=== PATIENT | male | born 1960 | race Caucasian/White ===

== ENCOUNTER 2016-08-15 06:03 | Day surgery (SDC) | payer OTHER, MEDICAID ==
[2016-08-15] VITALS (35 sets, daily range): BP systolic 107–160; BP diastolic 55–92; PULSE 54–90; RESP 11–21; Ht 165.1 cm; Wt 111.6 kg
[~2016-08-15] VITALS: Ht 165.1 cm; Wt 111.6 kg
[2016-08-15] MEDS ORDERED: GABA100C14 PO (07:09)
[2016-08-15] MEDS ORDERED: CANA1TAB3 PO (07:09)
[2016-08-15] MEDS ORDERED: TRAM50TA2 PO (07:09)
[2016-08-15] MEDS ORDERED: LISI20TA11 PO (07:09)
[2016-08-15] MEDS ORDERED: OMEP40CA6 PO (07:09)
[2016-08-15 08:07] LABS: ADD SCAN DIFF NO
[2016-08-15 08:28] LABS: BASOPHIL # 0.1 10^3/ul (0.0-0.1); BASOPHILS % 0.6 % (0.0-2.0); EOSINOPHILS # 0.2 10^3/ul (0.0-0.5); EOSINOPHILS % 2.8 % (0.0-7.0); HEMATOCRIT 46.1 % (42.0-52.0); HEMOGLOBIN 14.9 g/dl (14.0-18.0); LYMPHOCYTES # 2.4 10^3/ul (0.8-2.9); LYMPHOCYTES % 29.5 % (15.0-51.0); MEAN CORPUSCULAR HEMOGLOBIN 28.6 pg (29.0-33.0); MEAN CORPUSCULAR HGB CONC 32.3 g/dl (32.0-37.0); MEAN CORPUSCULAR VOLUME 88.5 fl (82.0-101.0); MEAN PLATELET VOLUME 11.1 fl (7.4-10.4); MONOCYTE # 0.6 10^3/ul (0.3-0.9); MONOCYTES % 7.5 % (0.0-11.0); NEUTROPHIL # 4.7 10^3/ul (1.6-7.5); NEUTROPHILS % 59.1 % (39.0-77.0); PLATELET COUNT 212 10^3/UL (140-415); RED BLOOD COUNT 5.21 10^6/ul (4.70-6.10); RED CELL DISTRIBUTION WIDTH 15.3 % (11.5-14.5)
[2016-08-15 08:31] LABS: CHOL/HDL RATIO 3.3 RATIO
[2016-08-15 08:32] LABS: CALCIUM 9.2 mg/dl (8.4-10.2); CREATININE 0.77 mg/dl (0.61-1.24); INR 0.94; PARTIAL THROMBOPLASTIN TIME 33.6 Sec (25.0-35.0); POTASSIUM 3.9 mmol/L (3.5-5.1); PROTIME 12.6 Sec (12.2-14.2)
[2016-08-15] MEDS ORDERED: MIDAZOLAM 1 MG/ML 2 ML INJ ONE (09:58)
[2016-08-15] MEDS ORDERED: FENTAnyl 50 MCG/ML VIAL ONE (09:58)
[2016-08-15] MEDS ORDERED: HEPARIN 1000 UNITS/ML 10 ML INJ ONE (09:58)
[2016-08-15] MEDS ORDERED: VERAPAMIL 5 MG INJ ONE (09:58)
[2016-08-15] MEDS ORDERED: HEPARIN 1000 UNITS/NS (A-LINE) 1,000 ML ONE (09:58)
[2016-08-15] MEDS ORDERED: NITROGLYCERIN (IC) 100 MCG/ML INJ ONE (09:59)
[2016-08-15] MEDS ORDERED: IODIXANOL LOCM 100 ML BTL ONE (09:59)
[2016-08-15] MEDS ORDERED: SOD CHLORIDE 0.9% 1,000 ML IV SCH (10:53)
[2016-08-15] MEDS ORDERED: AL HYDROX/MG HYDROX/SIMETH 30 ML CUP PO PRN (11:00)
[2016-08-15] MEDS ORDERED: morphine 2 MG INJ IV PRN (11:00)
[2016-08-15] MEDS ORDERED: ONDANSETRON 4 MG INJ IV PRN (11:00)
[2016-08-15] MEDS ORDERED: ACETAMINOPHEN 325 MG TAB PO PRN (11:00)
--- NOTE | 2016-08-15 11:09 | RADRPT ---
PROCEDURE: CHEST 1VW CLINICAL INDICATION: Preoperative TECHNIQUE: Single frontal view of the chest was obtained COMPARISON: None. FINDINGS: The cardiac size is normal. Aortic vascular calcifications are demonstrated. There is no pulmonary vascular congestion. The lungs are clear. No consolidation, effusion, or pneumothorax. Mild degenerative changes of the visualized osseous structures are visualized. IMPRESSION: 1. No acute cardiopulmonary process. 2. Atherosclerosis. RPTAT:PP .Fredis Whiting MD, MD Date Time Electronically viewed and signed by .Fredis Whiting MD, MD on 08/15/2016 11:09 .V/
--- NOTE | 2016-08-15 11:32 | CARRPT ---
DATE OF PROCEDURE: 08/15/2016 TYPE OF PROCEDURE: 1. Left heart catheterization. 2. Coronary angiography. 3. Left ventriculogram. ATTENDING PHYSICIAN: Lise Rand MD REFERRING PHYSICIAN: Dr. Yuly Menon. INDICATION: Preoperative patient with abnormal cardiac stress test findings. TYPE OF ANESTHESIA: Conscious and local. BRIEF HISTORY: Mr. Randhawa is a 56-year-old male with history of hypertension, diabetes mellitus wh o initially presented for preoperative evaluation for carpal tunnel surgery. The patient underwent a cardiac stress test and preoperative evaluation noted ischemia. Patient has now been brought to [facility] in order to assess for the possibility of significant obstructive coronary arter y disease lending to positive stress test findings in this preoperative patient. PROCEDURE: After informed consent was obtained, the patient was brought to the [facility] cardiac catheterization lab where his right radial area was prepped and draped in the usual sterile fashion. Lidocaine 2% was infiltrated into the right radial area in order to achieve adequ ate local anesthesia. Using modified Seldinger technique, the right radial artery was cannulated an d a 6-Icelandic arterial sheath was placed. A 6-Icelandic JL3.5 catheter was used to cannulate the left m ain coronary ostium. With contrast injection, multiple views of the left coronary arterial system w ere obtained. JL3.5 was removed over a guidewire and a JR4 was used to cannulate the right coronary arterial ostium. With contrast injection, multiple views of the right coronary arterial system wer e obtained. JL4 was removed over a guidewire and a 6-Icelandic pigtail was passed down the ascending a melvina into the left ventricle. Left ventricular end-diastolic pressure was measured. Using a power injector, 20 mL of contrast were injected opacifying the left ventricle. The pigtail catheter ____i nto the LV and left ventricular end-diastolic pressure was measured, the patient received 20 mL of c ontrast and the pigtail catheter was then pulled back across the aortic valve to assess for signific ant gradient, which there was not and removed. Subsequently, at this time, the patient's catheter w as removed, sheath was removed, TR band was applied, completing the procedure. There were no noted complications. FINDINGS: 1. Coronary angiography: Left main very short, 4.5 mm, no significant stenoses. Circumflex proxim ally is a 3.5 mm vessel and has an ostial 30% stenosis. The remainder of the circumflex is free of significant focal stenoses. The distal branching obtuse marginal 3 mm with no significant focal alaina noses and a distal branching obtuse marginal 2 mm with no significant focal stenoses and a mid-branc gabrielle obtuse marginal sub 2 mm vessel with no significant focal stenoses. The LAD proximally is a 3 mm vessel and is free of any significant focal stenosis throughout its entirety. There is a proxima l branching diagonal 2 mm with no significant focal stenoses. The right coronary artery proximally is a 3.5 mm vessel and in the mid portion there is a 20% stenosis, it is a dominant vessel, gives of f a 2.5 mm PDA with a 20% ostial stenosis and a 3 mm posterolateral branch with no significant focal stenoses. 2. Left ventriculogram revealed a left ventricular ejection fraction preserved at 60%, left ventric ular end diastolic pressure of 19 pre-LV gram, 24 post-LV gram, no significant aortic stenosis by gr adient, 1+ mitral regurgitation. TOTAL FLUOROSCOPY TIME: 3.1 minutes. TOTAL CONTRAST: 75 mL. IMPRESSION: 1. Very mild nonobstructive coronary artery disease. 2. Preserved left ventricular systolic function. 3. Mildly elevated left heart filling pressures. 4. No significant aortic stenosis by gradient. 5. There is 1+ mitral regurgitation. RECOMMENDATIONS: In light of procedure findings at this time were: 1. Maximize medical management. 2. Aggressive risk factor reduction. 3. The patient is okay to proceed with carpal tunnel surgery at this time from cardiac standpoint w ithout further evaluation. 4. Patient readmitted to [facility] day [facility] center status for post catheterization observation and c ontinued management of symptoms with probable discharge later this afternoon. Dictated By: LISE LIMON/BERNADINE Conf#: [id number] DID#: [id number] CC: YULY MENON MD;*End*
--- NOTE | 2016-08-15 17:20 | RADRPT ---
Vent Rate: 58 bpm RR Interval: 0 msec WV Interval: 170 msec QRS Duration: 108 msec QT Interval: 468 msec QTC Interval: 459 msec P-R-T Nahma: 44 - -9 - 38 degrees Sinus bradycardia with sinus arrhythmia Possible Anterior infarct , age undetermined Abnormal ECG Electronically Signed By: Singh Mccartney [id number]
== END 2016-08-15 10:56 | disposition home or self-care (01) ==
LOC: SDS 06:03
PROVIDERS: ATTEND Internal Medicine
DX: I25.10 Atherosclerotic heart disease of native coronary artery without angina pectoris (principal); R94.39 Abnormal result of other cardiovascular function study; I10 Essential (primary) hypertension; E11.9 Type 2 diabetes mellitus without complications
CPT/HCPCS: 71010; 80048; 80061; 82962; 85025; 85610; 85730; 93005; 93458; C1769; C1887; J1644; J2250; J3010; Q9967

== ENCOUNTER 2018-03-22 06:58 | Day surgery (SDC) | END 2018-03-22 15:45 | disposition home or self-care (01) ==